=== PATIENT | male | born 1995 | race Caucasian/White ===

== ENCOUNTER 2021-09-01 17:28 | Emergency (ER) | payer OTHER ==
[2021-09-01] MEDS ORDERED: TORAdol 30 mg Injection IV ONE (18:07)
--- NOTE | 2021-09-01 18:10 | ERPHSYRPT ---
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 rates 9/10 pain, tightness in chest. Physician History: Patient is a 25-year-old male presents to emergency department for evaluation of left ear pain and chest tightness. Patient states he has also been experiencing fever and vomiting. Patient attributes his fever to a left ear infection. Patient states left ear has been draining pus. Patient saw an ENT for this infection. Patient was started on antibiotics. Patient was advised obtain a CT head. Patient is a long-term inmate. He has been in long-term inmate since August 17. Patient denies Covid exposure. Patient's left ear pain described as an ache that is rated 9 out of 10. No active chest pain at this time. Symptoms are constant. Symptoms are moderate in intensity. No specific worsening improving factors. Patient voices no other complaints or concerns at this time. Timing/Duration: weeks (1 week) Severity: moderate ENT Location: ear (L) Prearrival Treatment: no prearrival treatment Modifying Factors: Improves With: nothing Associated Symptoms: dizziness, ear drainage, No drooling, No facial pain/swelling, No headache, No nasal congestion/drainage, No neck pain, No ri nging of ears, No swollen glands, No sinus infection, No difficulty swallowing, No voice change Allergies/Adverse Reactions: Penicillins Allergy (Severe, Verified 09/01/21 20:55) Difficulty Breathing Travel Risk - International Travel Have you traveled outside of the country in past 3 weeks: No - Coronavirus Screening Are you exhibiting any of the following symptoms?: Yes Symptoms: Fever, Vomiting/Diarrhea Close contact with a COVID-19 positive Pt in past 14-21 Days: No - Vaccine Status Have you recieved a Covid-19 vaccination: No - Review of Systems Constitutional: No Symptoms, No Fever, No Chills Eyes: No Symptoms Ears, Nose, & Throat: No Symptoms Respiratory: No Symptoms, No Cough, No Dyspnea Cardiac: No Symptoms, No Chest Pain, No Edema, No Syncope Abdominal/Gastrointestinal: No Symptoms, No Abdominal Pain, No Nausea, No Vomiting, No Diarrhea Genitourinary Symptoms: No Symptoms, No Dysuria Musculoskeletal: No Symptoms, No Back Pain, No Neck Pain Skin: No Symptoms, No Rash Neurological: No Symptoms, No Dizziness, No Focal Weakness, No Sensory Changes Psychological: No Symptoms Endocrine: No Symptoms Hematologic/Lymphatic: No Symptoms Immunological/Allergic: No Symptoms All Other Systems: Reviewed and Negative - Past Medical History Pertinent Past Medical History: Yes Respiratory History: Asthma - Past Surgical History Past Surgical History: Yes Other Surgical History: tubes in ears as child - Social History Smoking Status: Current every day smoker Exposure to second hand smoke: No Drug Use: marijuana, other Patient Lives Alone: No (in long-term currently) - Nursing Vital Signs Nursing Vital Signs: Initial Vital Signs Temperature 98.4 F 09/01/21 17:35 Pulse Rate 96 H 09/01/21 17:35 Respiratory Rate 20 09/01/21 17:35 Blood Pressure 173/103 09/01/21 17:35 O2 Sat by Pulse Oximetry 99 09/01/21 17:35 Pain Scale Pain Intensity 0 - Physical Exam General Appearance: no apparent distress, alert Eye Exam: bilateral eye: normal inspection, PERRL, EOMI Ear Exam: right ear: auricle normal, canal normal, TM normal, left ear: swelling, TM bulging Nasal Exam: normal inspection Throat Exam: pharynx normal, moist mucus membranes, No dental tenderness, No mandibular swelling, No pharynx swelling, No tongue swollen, No tonsillar exudate, No uvula swelling Neck Exam: normal inspection, non-tender, supple, full range of motion Cardiovascular/Respiratory Exam: chest non-tender, normal breath sounds, regular rate/rhythm Abdominal Exam: non-tender, soft, No no organomegaly, No no hernia, No guarding Neurologic Exam: alert, oriented x 3, cooperative, operating room orderly II-XII nml as tested, sensation nml, No motor deficits Skin Exam: normal color, warm, dry SpO2 Interpretation: normal SpO2: 99 O2 Delivery: Room Air - Course Nursing assessment & vital signs reviewed: Yes EKG Interpreted by Me: RATE (90), Sinus Rhythm, NORMAL AXIS, NORMAL INTERVALS - CT Exams Other CT Interpretation: Tele-radiologist Report (Left mastoid air cell and middle ear opacification suggestive of an infectious process.) Ordered Tests: Active Orders 24 hr Category Date Time Status Final Installer Inspector STAT Care 09/01/21 18:06 Active EKG-ER Only STAT Care 09/01/21 18:05 Active IV Insertion STAT Care 09/01/21 18:05 Active Pulse Oximetry (ED) STAT Care 09/01/21 18:05 Active CHEST 1 VIEW (PORTABLE) Stat Exams 09/01/21 19:04 Taken IAC W/O CONTRAST [CT] Stat Exams 09/01/21 18:07 Taken BLOOD CULTURE Stat Lab 09/01/21 18:06 Ordered CBC W DIFF Stat Lab 09/01/21 18:10 Completed CMP Stat Lab 09/01/21 18:10 Completed TROPONIN Q3H Lab 09/01/21 19:15 Completed TROPONIN Q3H Lab 09/01/21 22:37 Received TROPONIN Q3H Lab 09/02/21 01:15 Ordered TROPONIN Q3H Lab 09/02/21 04:15 Ordered TROPONIN Q3H Lab 09/02/21 07:15 Ordered Medication Summary Generic Name Dose Route Start Last Admin Trade Name Freq PRN Reason Stop Dose Admin Sodium Chloride 1,000 mls @ 100 mls/hr 09/01/21 18:15 09/01/21 18:50 Sodium Chloride 0.9% 1000 Ml IV 10/01/21 18:14 100 mls/hr .Q10H ROBYN Administration Nitroglycerin/Dextrose 250 mls @ 1.5 mls/hr 09/01/21 20:13 09/01/21 21:04 Ntg 0.2mg/Ml In D5w Glass IV 10/01/21 20:12 5 mcg/min .Q24H PRN 1.5 mls/hr CHEST PAIN Administration Protocol 5 MCG/MIN Heparin Sodium/Dextrose 25,000 units in 250 mls @ 10 mls/hr 09/01/21 21:00 09/01/21 20:36 Heparin 25,000 Units/D5w 250ml Premix IV 10/01/21 20:59 1,000 units/hr .Q24H ROBYN 10 mls/hr Administration Discontinued Medications Generic Name Dose Route Start Last Admin Trade Name Freq PRN Reason Stop Dose Admin Aspirin 324 mg 09/01/21 20:13 09/01/21 20:21 Aspirin 81 Mg Tab.Chew PO 09/01/21 20:14 324 mg STAT ONE Administration Aspirin Confirm 09/01/21 20:24 Aspirin 81 Mg Tab.Chew Administered 09/01/21 20:25 Dose 324 mg .ROUTE .STK-MED ONE Heparin Sodium (Beef Lung) 5,000 unit 09/01/21 20:34 09/01/21 20:35 Heparin 5000 Unit/0.5 Ml Syringe IV 09/01/21 20:35 5,000 unit STAT ONE Administration Heparin Sodium (Beef Lung) Confirm 09/01/21 20:32 Heparin 5000 Unit/0.5 Ml Syringe Administered 09/01/21 20:33 Dose 5,000 unit .ROUTE .STK-MED ONE Vancomycin HCl 1 gm in 200 mls @ 125 mls/hr 09/01/21 20:15 09/01/21 21:04 Vancomycin 1 Gram/200 Ml Bag IV 09/01/21 21:50 125 mls/hr STAT ONE 125 mls/hr Administration Piperacillin Sod/Tazobactam 100 mls @ 200 mls/hr 09/01/21 20:17 09/01/21 20:25 Sod 3.375 gm/ Sodium Chloride IV 09/01/21 20:46 200 mls/hr STAT ONE Administration Sodium Chloride Confirm 09/01/21 20:25 Sodium Chloride 100ml Mini-Bag Plus Administered 09/01/21 20:26 Dose 100 mls @ ud IV .STK-MED ONE Vancomycin HCl Confirm 09/01/21 21:02 Vancomycin 1 Gram/200 Ml Bag Administered 09/01/21 21:03 Dose 1 gm in 200 mls @ ud IV .STK-MED ONE Ketorolac Tromethamine 30 mg 09/01/21 18:07 09/01/21 18:50 Ketorolac Tromethamine 30 Mg/Ml Inj IV 09/01/21 18:08 30 mg STAT ONE Administration Ketorolac Tromethamine Confirm 09/01/21 18:14 Ketorolac Tromethamine 30 Mg/Ml Inj Administered 09/01/21 18:15 Dose 30 mg .ROUTE .STK-MED ONE Ondansetron HCl Confirm 09/01/21 21:06 Ondansetron Hcl 4 Mg/2 Ml Vial Administered 09/01/21 21:07 Dose 4 mg .ROUTE .STK-MED ONE Piperacillin Sod/Tazobactam Sod Confirm 09/01/21 20:24 Piperacillin/Tazobactam Sodium 3.375 Gm Vial Administered 09/01/21 20:25 Dose 3.375 gm IV .STK-MED ONE Lab/Rad Data: Laboratory Result Diagrams 09/01/21 18:10 09/01/21 18:10 Laboratory Results 09/01/21 09/01/21 09/01/21 Range/Units 19:15 18:46 18:10 WBC (4.0-10.5) K/mm3 RBC (4.1-5.6) M/mm3 Hgb (12.5-18.0) gm/dl Hct (42-50) % MCV (78-100) fl MCH (26-32) pg MCHC (32-36) g/dl RDW (11.5-14.0) % Plt Count (150-450) K/mm3 MPV (7.5-11.0) fl Gran % (36.0-66.0) % Eos # (Auto) (0-0.5) Absolute Lymphs (auto) (1.0-4.6) Absolute Monos (auto) (0.0-1.3) Lymphocytes % (24.0-44.0) % Monocytes % (0.0-12.0) % Eosinophils % (0.00-5.0) % Basophils % (0.0-0.4) % Absolute Granulocytes (1.4-6.9) Basophils # (0-0.4) Sodium 140 (137-145) mmol/L Potassium 4.1 (3.5-5.1) mmol/L Chloride 101 (98-107) mmol/L Carbon Dioxide 27 (22-30) mmol/L Anion Gap 15.4 H (5-15) MEQ/L BUN 17 (9-20) mg/dL Creatinine 1.01 (0.66-1.25) mg/dL Estimated GFR > 60.0 ML/MIN Glucose 129 H (74-106) mg/dL Calcium 9.5 (8.4-10.2) mg/dL Total Bilirubin 0.40 (0.2-1.3) mg/dL AST 24 (17-59) U/L ALT 24 (0-50) U/L Alkaline Phosphatase 111 (38-126) U/L Troponin I 0.079 H* (0.000-0.034) ng/mL Serum Total Protein 8.0 (6.3-8.2) g/dL Albumin 4.6 (3.5-5.0) g/dL Group A Strep Antibody NOT DETECTED (NEGATIVE) 09/01/21 Range/Units 18:10 WBC 12.0 H (4.0-10.5) K/mm3 RBC 5.02 (4.1-5.6) M/mm3 Hgb 15.6 (12.5-18.0) gm/dl Hct 46.2 (42-50) % MCV 92.0 (78-100) fl MCH 31.1 (26-32) pg MCHC 33.8 (32-36) g/dl RDW 13.9 (11.5-14.0) % Plt Count 262 (150-450) K/mm3 MPV 10.0 (7.5-11.0) fl Gran % 68.0 H (36.0-66.0) % Eos # (Auto) 0.15 (0-0.5) Absolute Lymphs (auto) 2.39 (1.0-4.6) Absolute Monos (auto) 1.25 (0.0-1.3) Lymphocytes % 19.9 L (24.0-44.0) % Monocytes % 10.4 (0.0-12.0) % Eosinophils % 1.3 (0.00-5.0) % Basophils % 0.4 (0.0-0.4) % Absolute Granulocytes 8.16 H (1.4-6.9) Basophils # 0.05 (0-0.4) Sodium (137-145) mmol/L Potassium (3.5-5.1) mmol/L Chloride (98-107) mmol/L Carbon Dioxide (22-30) mmol/L Anion Gap (5-15) MEQ/L BUN (9-20) mg/dL Creatinine (0.66-1.25) mg/dL Estimated GFR ML/MIN Glucose (74-106) mg/dL Calcium (8.4-10.2) mg/dL Total Bilirubin (0.2-1.3) mg/dL AST (17-59) U/L ALT (0-50) U/L Alkaline Phosphatase (38-126) U/L Troponin I (0.000-0.034) ng/mL Serum Total Protein (6.3-8.2) g/dL Albumin (3.5-5.0) g/dL Group A Strep Antibody (NEGATIVE) - Progress Progress: improved Progress Note: Patient reassessed. Pain significantly improved. Upon arrival to our ED patient states that he has been experiencing intermittent chest pain. No active chest pain upon arrival. Work-up reveals an elevated troponin at 0.079. Patient admits to history of coronary artery disease. Patient appears to have experienced an NSTEMI. Additionally patient has significant pain at his left mastoid. CAT scan reveals a mastoiditis with a middle ear infection. Antibiotics infused. Patient received a dose of nitroglycerin aspirin and heparin drip. Vancomycin Zosyn initiated. Patient will require cardiology consult as well as ENT. Patient will be transferred to [facility] for further evaluation and treatment. Patient is a long-term inmate and the senior security architect at the bedside has been informed of our plan of care. 09/01/21 20:[address] Sloan of [facility]. They do not have ENT available. Transfer was declined. 09/01/21 21:31 Case discussed with from [facility] who excepts ER to ER transfer. Plan of care discussed with patient. He agrees to transfer to [facility] for further evaluation and treatment. Patient reassessed. He is stable. Antib iotics infusing. Heparin and nitroglycerin infusing as well. Portions of this note were created with voice recognition technology. There may be grammatical, spelling, punctuation or sound alike errors 09/01/21 23:21 Counseled pt/family regarding: lab results, diagnosis, need for follow-up, rad results - Departure Departure Disposition: Observation Clinical Impression: Mastoiditis, NSTEMI (non-ST elevated myocardial infarction), Leukocytosis, Fever Condition: Stable Critical Care Time: No Referrals: ZAC VIDAL MD [Primary Care Provider] - Follow up/PCP as directed
[2021-09-01 18:14] LABS: Absolute Neutrophil Ct (ANC) 8.16 (1.4-6.9); Basophil (Absolute #) 0.05 (0-0.4); Eosinophil % 1.3 % (0.00-5.0); Eosinophil (Absolute #) 0.15 (0-0.5); Hematocrit 46.2 % (42-50); Hemoglobin 15.6 gm/dl (12.5-18.0); Lymphocyte (Absolute #) 2.39 (1.0-4.6); Lymphocytes % 19.9 % (24.0-44.0); Mean Corpuscular Hemoglobin 31.1 pg (26-32); Mean Corpuscular Hgb Concent. 33.8 g/dl (32-36); Monocyte (Absolute #) 1.25 (0.0-1.3); Monocytes % 10.4 % (0.0-12.0); Platelet Count 262 K/mm3 (150-450); Red Blood Count 5.02 M/mm3 (4.1-5.6); Red Cell Distribution Width 13.9 % (11.5-14.0)
[2021-09-01] MEDS ORDERED: Sodium Chloride 0.9% 1000 ML 1,000 ML ONE (18:14)
[2021-09-01] MEDS ORDERED: TORAdol 30 mg Injection ONE (18:14)
[2021-09-01] MEDS ORDERED: Sodium Chloride 0.9% 1000 ML 1,000 ML IV SCH (18:15)
[2021-09-01 18:19] LABS: ALBUMIN 4.6 g/dL (3.5-5.0); ALKALINE PHOSPHATASE 111 U/L (38-126); ANION GAP 15.4 MEQ/L (5-15); BLOOD UREA NITROGEN 17 mg/dL (9-20); CHLORIDE 101 mmol/L (98-107); Calcium 9.5 mg/dL (8.4-10.2); Carbon Dioxide 27 mmol/L (22-30); Creatinine 1 1.01 mg/dL (0.66-1.25); EST GLOMERULAR FILTRATION RATE > 60.0 ML/MIN; Glucose 129 mg/dL (74-106); Potassium 4.1 mmol/L (3.5-5.1); SGOT/AST 24 U/L (17-59); SGPT/ALT 24 U/L (0-50); SODIUM 140 mmol/L (137-145)
[2021-09-01] MEDS ORDERED: Ntg 0.2MG/Ml in D5W GLASS*** 250 ML IV PRN (20:13)
[2021-09-01] MEDS ORDERED: BABY ASPIRIN 81 MG CHEW PO ONE (20:13)
[2021-09-01] MEDS ORDERED: VANCOMYCIN 1 GRAM/200 ML BAG 1 GM/200 ML PIGGYBACK IV ONE ×2 (20:15→21:02)
[2021-09-01] MEDS ORDERED: Zosyn 3.375 GM Vial 3.375 GM in Sodium Chloride 100ML MINI-BAG PLUS 100 ML IV ONE (20:17)
[2021-09-01] MEDS ORDERED: Zosyn 3.375 GM Vial IV ONE (20:24)
[2021-09-01] MEDS ORDERED: BABY ASPIRIN 81 MG CHEW ONE (20:24)
[2021-09-01] MEDS ORDERED: Sodium Chloride 100ML MINI-BAG PLUS 100 ML IV ONE (20:25)
[2021-09-01] MEDS ORDERED: Heparin 5000 UNITS/0.5 ML (HIGH RISK MED) ONE (20:32)
[2021-09-01] MEDS ORDERED: Heparin 25,000 units/D5W 250ML PREMIX 25,000 UNITS/250 ML BAG IV ONE (20:33)
[2021-09-01] MEDS ORDERED: Heparin 5000 UNITS/0.5 ML (HIGH RISK MED) IV ONE (20:34)
[2021-09-01] MEDS ORDERED: Heparin 25,000 units/D5W 250ML PREMIX 25,000 UNITS/250 ML BAG IV SCH (21:00)
[2021-09-01] MEDS ORDERED: Ntg 0.2MG/Ml in D5W GLASS*** 250 ML IV ONE (21:02)
[2021-09-01] MEDS ORDERED: Zofran 4 MG/2 ML VIAL ONE (21:06)
[2021-09-01 23:08] VITALS: BP 120/75; PULSE 72
[2021-09-01 23:23] VITALS: O2SAT 99
--- NOTE | 2021-09-02 15:32 | XRAY ---
Exam: AP upright portable chest film from 09/01/2021. Comparison: None. Indication: Chest pain. Findings: The heart size and contour are normal. The film has been obtained in a mildly lordotic projection. The lungs are well inflated. No air space infiltrates, vascular congestion, pneumothorax, or pleural fluid is seen. No acute osseous process is seen. There is mild convexity of the lower thoracic spine toward the right which may be due to a mild lower thoracic dextroscoliosis. Correlate clinically. Impression: 1. No air space infiltrates or other evidence of acute cardiopulmonary disease is seen. 2. Probable mild lower thoracic dextroscoliosis.
--- NOTE | 2021-09-03 14:44 | XRAY ---
Exam: CT of the internal auditory canals without IV contrast from 09/01/2021. CTDI: 30.77 mGy Comparison: None. Indication: 25-year-old male complains of left ear pain and fever; rule out left ear mass/mastoiditis. Technique: Non-IV contrast axial images were obtained through the temporal bones with attention to the internal auditory canals using a bone algorithm. Reconstructed coronal and sagittal images were obtained. Findings: On the right side, the inner ear appears unremarkable. The internal auditory canal appears unremarkable. The middle ear cavity appears unremarkable without evidence of soft tissue/fluid. The middle ear ossicles on the right appear intact. The right external auditory canal appears aerated and unremarkable. No significant abnormality of the right facial nerve canal is seen. There is no evidence of jugular dehiscence. No aberrant carotid canal on the right is seen. The right mastoid air cells are normal without effusion. On the left side, the inner ear appears normal. The internal artery canal appears unremarkable. However, there is opacification within both the middle ear and the mastoid air cells suggestive of an infectious process. The middle ear ossicles appear intact. The left external auditory canal is not normally aerated. This may be due to soft tissue thickening or other soft tissue density from an infectious process. The left facial nerve canal appears unremarkable. No left jugular dehiscence is seen. No abnormal carotid canal is seen on the left. There is moderate deviation of the nasal septum toward the left. The remainder of the soft tissues appear unremarkable. Impression: 1. Left mastoid air cells and middle ear opacification is seen suggestive of an infectious process. There is also no significant air density seen within the left external auditory canal which may be due to soft tissue thickening/edema or mass. I believe this is most likely due to an infectious process as well. If the patient does not respond to appropriate medical therapy, ENT consultation would be advised.
== END 2021-09-01 23:35 | disposition short-term general hospital (02) ==
LOC: ED 17:28
DX: H70.002 Acute mastoiditis without complications, left ear (principal); I21.4 Non-ST elevation (NSTEMI) myocardial infarction; D72.829 Elevated white blood cell count, unspecified; R50.9 Fever, unspecified; R11.2 Nausea with vomiting, unspecified; Z72.0 Tobacco use
CPT/HCPCS: 36000; 36415; 70480; 71045; 80053; 84484; 85025; 87040; 87651; 93005; 93041; 94760; 96360; 96365; 96367; 96374; 96375; 99285; J1644; J1885; J2405; A9270-GY; J3370